=== PATIENT | male | born 1980 | race African-American/Black ===

== ENCOUNTER 2023-12-18 14:31 | Emergency (ER) | payer MEDICAID, OTHER ==
[~2023-12-18] VITALS: Ht 180.3 cm; Wt 82.0 kg
[2023-12-18 14:48] VITALS: BP 135/90; PULSE 97; RESP 20; TEMP 98.9; O2SAT 100
[2023-12-18] MEDS ORDERED: ACETAMINOPHEN 325MG TABLET PO ONE (15:30)
[2023-12-18 16:14] LABS: BASOPHILS % 0.2 % (0.0-2.0); DIFFERENTIAL COMMENT 0; HEMATOCRIT. 38.7 % (42.0-52.0); HEMOGLOBIN. 12.5 g/dL (14.0-18.0); LYMPHOCYTES % 13.5 % (20.0-50.0); MEAN CORPUSCULAR HEMOGLOBIN 24.8 pg (28.0-32.0); MEAN CORPUSCULAR HGB CONC 32.4 g/dL (31.0-37.0); MEAN CORPUSCULAR VOLUME 76.8 fL (80.0-94.0); MONOCYTES % 4.5 % (2.0-8.0); NEUTROPHILS % 81.8 % (40.0-76.0); PLATELET 219 x1000/uL (130-400); RED BLOOD CELL COUNT 5.04 mill/uL (4.7-6.1); RED CELL DISTRIBUTION WIDTH 17.4 % (11.6-14.6); WHITE BLOOD COUNT 7.9 x1000/uL (4.5-11.0)
[2023-12-18] MEDS ORDERED: TOPUD PO (16:20)
[2023-12-18] MEDS ORDERED: IBUP-2028 PO (16:47)
[2023-12-18] MEDS ORDERED: T3 PO (16:47)
[2023-12-18] MEDS ORDERED: ONDA4TAB50 PO (16:47)
[2023-12-18] MEDS: ACETAMINOPHEN 325MG TABLET PO NR (17:30)
== END 2023-12-18 17:32 | disposition home or self-care (01) ==
LOC: ER 14:54
DX: B34.9 Viral infection, unspecified (principal)
CPT/HCPCS: 36415; 71045; 85025; 99284